=== PATIENT | female | born 1955 | race African-American/Black ===

== ENCOUNTER 2019-07-06 08:00 | Emergency (ER) | payer OTHER ==
[~2019-07-06] VITALS: Ht 160 cm; Wt 104.8 kg
[2019-07-06 08:18] VITALS: Ht 160 cm; Wt 104.8 kg
[2019-07-06 11:04] VITALS: BP 150/98
== END 2019-07-06 11:04 | disposition home or self-care (01) ==
LOC: ED 08:00
DX: J20.9 Acute bronchitis, unspecified (principal); I10 Essential (primary) hypertension; J45.909 Unspecified asthma, uncomplicated
CPT/HCPCS: J7512; J7613; J7644